=== PATIENT | female | born 1970 | race Caucasian/White ===

== ENCOUNTER → 2016-10-01 | Outpatient (CLI) | payer OTHER ==
--- NOTE | 2016-10-01 12:04 | PN ---
DATE OF SERVICE: 10/01/2016 A 46-year-old lady who [facility] of obstructive sleep apnea-hypopnea syndrome. Recently patient had polysomnogram and CPAP titration and I discussed results of sleep studies with patient in detail. She was started on treatment with CPAP at the pressure of 8 cm of water. She brought her CPAP unit with her. I checked CPAP unit. CPAP pressure is 8 cm of water, ramp is an out regimen, leak is 10 L/min. Apnea-hypopnea index from the machine reading is only 0.5. A total usage of 28 out of 30 nights. Usage for more than 4 hours 19 of 30 nights. Humidifier is at the level of 4. Sometimes patient feels dryness in her mouth. She had one episode when she had difficulties with usage of the machine. Otherwise, basically she used machine pretty well. Sleeps better with the machine and feels better during the day. Recently, she developed some numbness in her hands. MEDICATIONS: ( ) During physical exam, patient in no distress. BP 119/70, HR 22, RR 16. Weight 237. Temp 97.8. Oxygen saturation at room air 97%. Oropharynx low position of soft palate. ABDOMEN: Obese. HEENT: PERRLA, EOMI, Evaluation of the oropharynx showed tongue protrudes midline. NECK: Supple. No JVD, Thyroid is not palpable. LUNGS: Clear to percussion and to auscultation. Good air exchange. No wheezing or rhonchi. HEART: S1, S2 regular. No murmurs, gallops, or rubs. HANDBAG FRAMER: Awake, alert, and oriented x3. Cranial nerves 2 to 7 intact. There is no fasciculation or atrophy noted. No focal deficits observed. IMPRESSION: 1. Mild obstructive sleep apnea-hypopnea syndrome on full control with CPAP at 8 cm of water. Patient demonstrated borderline compliance with treatment benefiting from treatment. 2. Obesity. 3. Episodes of ( ) 4. Recently patient developed some numbness in her hands. PLAN: 1. Continue treatment with CPAP every night for the whole night. 2. Losing weight. 3. Sleep hygiene with regular time in bed for at least 8 hours. 4. No driving if feeling any sleepiness. 5. Patient is going to see her primary care physician and they are going to discuss numbness in her hands. Thank you very much for allowing me to participate in the management of your patient. Sincerely, Abdiel Andrea MD, PhD, FAASM Diplomat of [employer], Sleep Medicine Board by [employer] [facility] [address]
== END | disposition home or self-care (01) ==
LOC: SLEEP 10:34
PROVIDERS: ATTEND Internal Medicine
DX: G47.33 Obstructive sleep apnea (adult) (pediatric) (principal); E66.9 Obesity, unspecified

== ENCOUNTER → 2017-07-13 | Outpatient (CLI) | payer OTHER ==
--- NOTE | 2017-07-13 14:03 | MR ---
EXAMINATION TYPE: MR lumbar spine wo con DATE OF EXAM: 07/13/2017 COMPARISON: NONE HISTORY: 47-year-old female Low back pain TECHNIQUE: Multiplanar, multisequence images of the lumbar spine were acquired. Findings: Possible large 6.1 cm partially exophytic fundal fibroid from the uterus, axial image 1 and survey im age 6. Vertebral body heights are preserved. Hypertrophic facet arthropathy mid to lower lumbar spine. There is grade 1 anterolisthesis at L4-L5. Variable mild disc desiccation from L3 through S1 levels with bulging disc, largest at L4-L5. No suspicious bone marrow placement. Conus medullaris is normal. At T12-L1, no canal or foraminal stenosis. At L1-L2, no canal or foraminal stenosis. At L2-L3, no canal or foraminal stenosis. At L3-L4, minimal bulging disc. There is also facet degenerative change. No significant canal or fora bridget stenosis. At L4-L5, diffuse disc bulge with severe hypertrophic facet arthropathy. There is grade 1 anterolisth esis here. The cauda equina nerve roots are crowded close together with some residual CSF signal with in the spinal canal at this level. Findings compatible with a moderate to severe focal spinal canal s tenosis. There is mild bilateral neural foraminal stenosis. At L5-S1, diffuse disc bulge with facet degenerative change. Minimal narrowing of the bilateral neura l foramen. No significant spinal canal stenosis. No prevertebral or paravertebral soft tissue abnormality seen. IMPRESSION: 1. Hypertrophic facet arthropathy mid to lower lumbar spine with degenerative grade 1 anterolisthesis at L4-L5. 2. Mild degenerative disc disease L3 through S1 levels, more mild to moderate at L4-L5. 3. The anterolisthesis, facet arthropathy, and bulging disc contributes to a moderate to severe spina l canal stenosis at L4-L5. Mild bilateral neural foraminal stenosis. 4. Suspect a large 6.1 cm partially exophytic fundal fibroid from the uterus. Pelvic ultrasound can c onfirm.
== END | disposition home or self-care (01) ==
LOC: RADMRIMAIN 12:49
PROVIDERS: ATTEND Internal Medicine
DX: M48.061 Spinal stenosis, lumbar region without neurogenic claudication (principal); M99.73 Connective tissue and disc stenosis of intervertebral foramina of lumbar region; M43.16 Spondylolisthesis, lumbar region; M51.37 Other intervertebral disc degeneration, lumbosacral region; M46.96 Unspecified inflammatory spondylopathy, lumbar region
CPT/HCPCS: 72148

== ENCOUNTER → 2017-07-19 | Outpatient (CLI) | payer OTHER ==
--- NOTE | 2017-07-19 12:31 | US ---
EXAMINATION TYPE: US pelvic complete DATE OF EXAM: 07/19/2017 COMPARISON: MRI CLINICAL HISTORY: R19.09 ABD AND PELVIC MASS. TECHNIQUE: Transabdominal sonographic images of the pelvis were acquired; attempted TV US to better assess uterine fibroid, but mid and fundal uterus was beyond the field of view; , C section x 2. Date of LMP: 07-03-2017 EXAM MEASUREMENTS: Uterus: 12.4 x 6.8 x 5.3 cm Endometrial Stripe: 0.6 cm Right Ovary: 3.4 x 3.0 x 2.2 cm Left Ovary: 3.1 x 3.0 x 1.4 cm 1. Uterus: Anteverted; enlarged uterus; nodular superior borders seen; hypoechoic lesion is seen wit hin the mid uterus = 2.9 x 2.8 x 3.7 cm. This impresses upon the endometrial canal on image 33 and 3 4. This is favored to be intramural but also could be subserosal (less likely). 2. Endometrium: thickness wnl for Day 17LMP. 3. Right Ovary: small follicles 4. Left Ovary: small follicles 5. Bilateral Adnexa: wnl 6. Posterior cul-de-sac: wnl IMPRESSION: 1. Solitary hypoechoic lesion measuring up to 3.7 cm within the posterior mid body of the uterus favo red to represent an intramural leiomyoma although subserosal location is possible as there is impress ion on the non-thickened endometrial canal. In comparison to the lumbar spine MRI with small field-of -view images and only partial visualization of this region on MR, the 6.1 cm transverse dimension me asurement corresponds to the transverse dimension of the uterine fundus. 2. Ovaries are unremarkable.
== END | disposition home or self-care (01) ==
LOC: RADUSWWP 11:11
PROVIDERS: ATTEND Internal Medicine
DX: R93.8 Abnormal findings on diagnostic imaging of other specified body structures (principal)
CPT/HCPCS: 76856